=== PATIENT | male | born 1950 | race Caucasian/White ===

== ENCOUNTER 2024-02-15 15:56 | Outpatient (CLI) | payer MEDICARE ==
[~2024-02-15 15:56] MED LIST: iohexol 350MG/ML 100ml bottle IV ONE
== END 2024-02-15 23:59 | disposition home or self-care (01) ==
LOC: RAD 15:56
PROVIDERS: ATTEND Physician Assistant
DX: I31.39 Other pericardial effusion (noninflammatory) (principal); E27.9 Disorder of adrenal gland, unspecified; N28.1 Cyst of kidney, acquired; R07.1 Chest pain on breathing
CPT/HCPCS: 71275; Q9967